=== PATIENT | male | born 1975 | race Caucasian/White ===

== ENCOUNTER 2018-11-21 08:56 | Emergency (ER) | payer MEDICAID ==
[2018-11-21] MEDS ORDERED: Albuterol/Ipratropium 3.0-0.5 MG/3 ML Neb Soln NEB ONE (09:07)
[2018-11-21] MEDS ORDERED: Sodium Chloride 0.9% 10 ML Syringe FLUSH PRN (09:08)
[2018-11-21] MEDS ORDERED: Aspirin 81 MG Tab.Chew PO ONE (09:08)
[2018-11-21] MEDS ORDERED: Sodium Chloride 0.9% 2.5 ML Syringe FLUSH PRN (09:08)
[2018-11-21] MEDS ORDERED: Sodium Chloride 0.9% 1,000 ML IV ONE (09:11)
--- NOTE | 2018-11-21 09:17 | EDM.PDOC ---
ED HPI GENERAL MEDICAL PROBLEM - General Chief Complaint: Respiratory Problem Stated Complaint: TROUBLE BREATHING Time Seen by Provider: 11/21/18 09:11 - History of Present Illness INITIAL COMMENTS - FREE TEXT/NARRATIVE: HISTORY AND PHYSICAL: History of present illness: Patient a 43-year-old male presents with a concern of right chest and upper back pain acute onset this morning he states he has history of COPD he denies trauma denies nausea vomiting palpitations fever chills or other concern Review of systems: As per history of present illness and below otherwise all systems reviewed and negative. Past medical history: As per history of present illness and as reviewed below otherwise noncontributory. Surgical history: As per history of present illness and as reviewed below otherwise noncontributory. Social history: No reported history of drug or alcohol abuse. Family history: As per history of present illness and as reviewed below otherwise noncontributory. Physical exam: HEENT: Atraumatic, normocephalic, pupils reactive, negative for conjunctival pallor or scleral icterus, mucous membranes moist, throat clear, neck supple, nontender, trachea midline. Lungs: Clear to auscultation, breath sounds equal bilaterally, chest nontender. Heart: S1S2, regular, negative for clicks, rubs, or JVD. Abdomen: Soft, nondistended, nontender. Negative for masses or hepatosplenomegaly. Negative for costovertebral tenderness. Pelvis: Stable nontender. Genitourinary: Deferred. Rectal: Deferred. Extremities: Atraumatic, negative for cords or calf pain. Neurovascular unremarkable. Neuro: Awake, alert, oriented. Cranial nerves II through XII unremarkable. Cerebellum unremarkable. Motor and sensory unremarkable throughout. Exam nonfocal. Diagnostics: CBC CMP troponin PT/INR chest x-ray EKG CTA chest Therapeutics: IV O2 monitor Impression: #1 atypical chest pain #2 dyspnea Definitive disposition and diagnosis as appropriate pending reevaluation and review of above. Right Back Pain Score (Numeric/FACES): 9 - Related Data Allergies Allergy/AdvReac Type Severity Reaction Status Date / Time tomato Allergy Airway Verified 11/21/18 09:02 Tightness Home Meds: Home Meds . [No Known Home Meds] 11/21/18 [History] Past Medical History Respiratory History: Reports: Asthma, COPD - Past Surgical History HEENT Surgical History: Reports: Adenoidectomy, Tonsillectomy GI Surgical History: Reports: Cholecystectomy Social & Family History - Family History Family Medical History: Noncontributory - Tobacco Use Smoking Status *Q: Current Every Day Smoker Years of Tobacco use: 20 Packs/Tins Daily: 0.1 - Recreational Drug Use Recreational Drug Use: No ED ROS GENERAL - Review of Systems Review Of Systems: ROS reveals no pertinent complaints other than HPI. ED EXAM, GENERAL - Physical Exam Exam: See Below (See dictation) Course - Vital Signs Text/Narrative:: Patient's emergency room course the unremarkable CT chest was negative for any obvious pulmonary emboli was an incidental nodule noted in right lower lung and discussed with patient the need for follow-up with his private medical doctor understands and agrees cardiac enzymes were negative patient be discharged with diagnoses of #1 atypical chest pain #2 history of COPD he'll be given Ultram to take as prescribed and follow-up with his private medical doctor as discussed for follow-up was pulmonary nodule in reevaluation he's return as needed as discussed Last Recorded V/S: Last Vital Signs Temp 35.9 C 11/21/18 08:59 Pulse 77 11/21/18 11:20 Resp 20 11/21/18 11:20 BP 144/100 H 11/21/18 11:20 Pulse Ox 98 11/21/18 11:20 - Orders/Labs/Meds Orders: Active Orders 24 hr Category Date Time Status Cardiac Monitoring [RC] . DIRECTED Care 11/21/18 09:08 Active EKG 12 Lead [EKG Documentation Completion] [RC] STAT Care 11/21/18 09:07 Active Oxygen Therapy [RC] ASDIRECTED Care 11/21/18 09:08 Active Pulse Oximetry [RC] ASDIRECTED Care 11/21/18 09:08 Active RT Aerosol Therapy [RC] ASDIRECTED Care 11/21/18 09:07 Active Sodium Chloride 0.9% [Saline Flush] Med 11/21/18 09:08 Active 10 ml FLUSH ASDIRECTED PRN Sodium Chloride 0.9% [Saline Flush] Med 11/21/18 09:08 Active 2.5 ml FLUSH ASDIRECTED PRN Saline Lock Insert [OM.PC] Stat Oth 11/21/18 09:08 Ordered Medication Orders Sodium Chloride (Saline Flush) 10 ml FLUSH ASDIRECTED PRN PRN Reason: Keep Vein Open Sodium Chloride (Saline Flush) 2.5 ml FLUSH ASDIRECTED PRN PRN Reason: Keep Vein Open Labs: Laboratory Tests 11/21/18 11/21/18 11/21/18 Range/Units 09:10 09:10 09:10 WBC 11.51 H (4.0-11.0) K/uL RBC 4.83 (4.50-5.90) M/uL Hgb 14.7 (13.0-17.0) g/dL Hct 42.8 (38.0-50.0) % MCV 88.6 (80.0-98.0) fL MCH 30.4 (27.0-32.0) pg MCHC 34.3 (31.0-37.0) g/dL RDW Std Deviation 44.1 (28.0-62.0) fl RDW Coeff of Waylon 14 (11.0-15.0) % Plt Count 312 (150-400) K/uL MPV 10.50 (7.40-12.00) fL Neut % (Auto) 62.3 (48.0-80.0) % Lymph % (Auto) 26.2 (16.0-40.0) % [place] % (Auto) 8.8 (0.0-15.0) % Eos % (Auto) 2.3 (0.0-7.0) % Baso % (Auto) 0.4 (0.0-1.5) % Neut # (Auto) 7.2 H (1.4-5.7) K/uL Lymph # (Auto) 3.0 H (0.6-2.4) K/uL [place] # (Auto) 1.0 H (0.0-0.8) K/uL Eos # (Auto) 0.3 (0.0-0.7) K/uL Baso # (Auto) 0.1 (0.0-0.1) K/uL Nucleated RBC % 0.0 /100WBC Nucleated RBCs # 0 K/uL INR 0.92 ABG pH (7.35-7.45) ABG pCO2 (35-45) mmHG ABG pO2 (75-100) mmHG ABG HCO3 (22-26) mEq/L ABG Total CO2 ABG Base Excess (-2.0-2.0) Sodium 141 (136-148) mmol/L Potassium 3.7 (3.5-5.1) mmol/L Chloride 106 (98-107) mmol/L Carbon Dioxide 24.3 (21.0-32.0) mmol/L BUN 14 (7.0-18.0) mg/dL Creatinine 1.1 (0.8-1.3) mg/dL Est Cr Clr Drug Dosing 86.59 mL/min Estimated GFR (MDRD) > 60.0 ml/min Glucose 128 H (74-106) mg/dL Calcium 9.7 (8.5-10.1) mg/dL Total Bilirubin 0.4 (0.2-1.0) mg/dL AST 14 L (15-37) IU/L ALT 30 (14-63) IU/L Alkaline Phosphatase 54 (46-116) U/L Troponin I < 0.050 (0.000-0.056) ng/mL Total Protein 7.5 (6.4-8.2) g/dL Albumin 3.8 (3.4-5.0) g/dL Globulin 3.7 (2.6-4.0) g/dL Albumin/Globulin Ratio 1.0 (0.9-1.6) 11/21/18 Range/Units 09:30 WBC (4.0-11.0) K/uL RBC (4.50-5.90) M/uL Hgb (13.0-17.0) g/dL Hct (38.0-50.0) % MCV (80.0-98.0) fL MCH (27.0-32.0) pg MCHC (31.0-37.0) g/dL RDW Std Deviation (28.0-62.0) fl RDW Coeff of Waylon (11.0-15.0) % Plt Count (150-400) K/uL MPV (7.40-12.00) fL Neut % (Auto) (48.0-80.0) % Lymph % (Auto) (16.0-40.0) % [place] % (Auto) (0.0-15.0) % Eos % (Auto) (0.0-7.0) % Baso % (Auto) (0.0-1.5) % Neut # (Auto) (1.4-5.7) K/uL Lymph # (Auto) (0.6-2.4) K/uL [place] # (Auto) (0.0-0.8) K/uL Eos # (Auto) (0.0-0.7) K/uL Baso # (Auto) (0.0-0.1) K/uL Nucleated RBC % /100WBC Nucleated RBCs # K/uL INR ABG pH 7.442 (7.35-7.45) ABG pCO2 37 (35-45) mmHG ABG pO2 77 (75-100) mmHG ABG HCO3 25 (22-26) mEq/L ABG Total CO2 21.8 ABG Base Excess 1.0 (-2.0-2.0) Sodium (136-148) mmol/L Potassium (3.5-5.1) mmol/L Chloride (98-107) mmol/L Carbon Dioxide (21.0-32.0) mmol/L BUN (7.0-18.0) mg/dL Creatinine (0.8-1.3) mg/dL Est Cr Clr Drug Dosing mL/min Estimated GFR (MDRD) ml/min Glucose (74-106) mg/dL Calcium (8.5-10.1) mg/dL Total Bilirubin (0.2-1.0) mg/dL AST (15-37) IU/L ALT (14-63) IU/L Alkaline Phosphatase (46-116) U/L Troponin I (0.000-0.056) ng/mL Total Protein (6.4-8.2) g/dL Albumin (3.4-5.0) g/dL Globulin (2.6-4.0) g/dL Albumin/Globulin Ratio (0.9-1.6) Meds: Medications Generic Name Dose Route Start Last Admin Trade Name Freq PRN Reason Stop Dose Admin Sodium Chloride 10 ml 11/21/18 09:08 Saline Flush FLUSH ASDIRECTED PRN Keep Vein Open Sodium Chloride 2.5 ml 11/21/18 09:08 Saline Flush FLUSH ASDIRECTED PRN Keep Vein Open Discontinued Medications Generic Name Dose Route Start Last Admin Trade Name Freq PRN Reason Stop Dose Admin Albuterol/Ipratropium 3 ml 11/21/18 09:07 11/21/18 09:16 Duoneb 3.0-0.5 Mg/3 Ml NEB 11/21/18 09:08 3 ml ONETIME ONE Administration Aspirin 324 mg 11/21/18 09:08 11/21/18 09:25 Aspirin PO 11/21/18 09:09 324 mg ONETIME ONE Administration Sodium Chloride 1,000 mls @ 999 mls/hr 11/21/18 09:11 11/21/18 09:25 Normal Saline IV 11/21/18 10:11 999 mls/hr STAT ONE Administration Departure - Departure Time of Disposition: 11:39 Disposition: Home, Self-Care 01 Condition: Good Clinical Impression: Atypical chest pain, COPD (chronic obstructive pulmonary disease) - Discharge Information Referrals: PCP,None [Primary Care Provider] - Forms: ED Department Discharge Additional Instructions: The following information is given to patients seen in the emergency department who are being discharged to home. This information is to outline your options for follow-up care. We provide all patients seen in our emergency department with a follow-up referral. The need for follow-up, as well as the timing and circumstances, are variable depending upon the specifics of your emergency department visit. If you don't have a primary care physician on staff, we will provide you with a referral. We always advise you to contact your personal physician following an emergency department visit to inform them of the circumstance of the visit and for follow-up with them and/or the need for any referrals to a consulting specialist. The emergency department will also refer you to a specialist when appropriate. This referral assures that you have the opportunity for followup care with a specialist. All of these measure are taken in an effort to provide you with optimal care, which includes your followup. Under all circumstances we always encourage you to contact your private physician who remains a resource for coordinating your care. When calling for followup care, please make the office aware that this follow-up is from your recent emergency room visit. If for any reason you are refused follow-up, please contact the [facility] emergency department at and asked to speak to the emergency department charge nurse. [facility] [address] [place] [address] [id number] [facility] as prescribed follow-up private medical doctor and/or clinic as discussed return as needed as discussed - My Orders Last 24 Hours: My Active Orders 11/21/18 09:07 EKG 12 Lead [EKG Documentation Completion] [RC] STAT RT Aerosol Therapy [RC] ASDIRECTED 11/21/18 09:08 Cardiac Monitoring [RC] . DIRECTED Oxygen Therapy [RC] ASDIRECTED Pulse Oximetry [RC] ASDIRECTED Sodium Chloride 0.9% [Saline Flush] 10 ml FLUSH ASDIRECTED PRN Sodium Chloride 0.9% [Saline Flush] 2.5 ml FLUSH ASDIRECTED PRN Saline Lock Insert [OM.PC] Stat - Assessment/Plan Last 24 Hours: My Active Orders 11/21/18 09:07 EKG 12 Lead [EKG Documentation Completion] [RC] STAT RT Aerosol Therapy [RC] ASDIRECTED 11/21/18 09:08 Cardiac Monitoring [RC] . DIRECTED Oxygen Therapy [RC] ASDIRECTED Pulse Oximetry [RC] ASDIRECTED Sodium Chloride 0.9% [Saline Flush] 10 ml FLUSH ASDIRECTED PRN Sodium Chloride 0.9% [Saline Flush] 2.5 ml FLUSH ASDIRECTED PRN Saline Lock Insert [OM.PC] Stat
[2018-11-21 10:04] LABS: CHLORIDE,CL 106 mmol/L (98-107); SODIUM,NA 141 mmol/L (136-148)
--- NOTE | 2018-11-21 10:51 | CR ---
EXAMINATION: Portable chest radiograph. HISTORY: Shortness of breath. FINDINGS: The trachea is midline. The cardiomediastinal silhouette is within normal limits. No pulmonary infiltrates, effusions or pneumothorax. Interstitial prominence and atelectasis. Osseous structures appear unremarkable. IMPRESSION: No acute cardiopulmonary process.
--- NOTE | 2018-11-21 11:29 | CT ---
EXAMINATION: CTA chest HISTORY: Pain COMPARISON: Radiograph from the same day TECHNIQUE: Axial CT imaging obtained through the chest following the administration of 50 mL of Isovue-370. This was repeated with 40 mL however again there was suboptimal bolus timing. Coronal and sagittal reconstructions obtained. FINDINGS: The lungs are clear without focal consolidation. No pleural effusion or pneumothorax. Mild dependent atelectasis bilaterally. There is a small amount of soft tissue within the anterior mediastinum, likely residual thymic tissue. The heart is normal in size without a pericardial effusion. The thoracic aorta is normal in caliber. The main pulmonary arteries are patent, and the distal pulmonary arteries are not adequately opacified for evaluation. There is a 3 to 4 mm nodule within the right lower lobe, image 42, series 502. No mediastinal, hilar, or axillary lymphadenopathy. Central airways are clear. Visualized images of the upper abdomen appear normal. No suspicious osseous abnormalities. IMPRESSION: 1. Suboptimal bolus timing on multiple images, however no main or central pulmonary embolism identified. 2. Otherwise no acute cardiopulmonary finding. 3. Small 3 to 4 mm nodule within the right lower lobe. If the patient has known risk factors consider follow-up imaging in 12 months.
[2018-11-21] MEDS ORDERED: Iopamidol 755 MG/ML 500 ML Multipack Bottle IVPUSH ONE (15:16)
== END 2018-11-21 12:36 | disposition home or self-care (01) ==
LOC: MW.ED 08:56
DX: R07.89 Other chest pain (principal); J44.9 Chronic obstructive pulmonary disease, unspecified; F17.210 Nicotine dependence, cigarettes, uncomplicated; Z91.018 Allergy to other foods
CPT/HCPCS: 36415; 36600; 71045; 71275; 80053; 82803; 84484; 85025; 85610; 93005; 94640; 96360; 99285; A9270; J7040; Q9967; J7620-GY

== ENCOUNTER 2019-01-12 03:39 | Observation (INO) | payer MEDICAID ==
[2019-01-12] MEDS ORDERED: Albuterol/Ipratropium 3.0-0.5 MG/3 ML Neb Soln NEB ONE (03:51)
[2019-01-12] MEDS ORDERED: Sodium Chloride 0.9% 10 ML Syringe FLUSH PRN (04:08)
[2019-01-12] MEDS ORDERED: Sodium Chloride 0.9% 2.5 ML Syringe FLUSH PRN (04:08)
[2019-01-12] MEDS ORDERED: Sodium Chloride 0.9% 1,000 ML IV ONE (04:08)
[2019-01-12] MEDS ORDERED: methylPREDNISolone Sodium Succinate 125 MG/2 ML SDV IVPUSH ONE (04:08)
[2019-01-12] MEDS ORDERED: methylPREDNISolone Sodium Succinate 125 MG/2 ML SDV ONE (04:09)
--- NOTE | 2019-01-12 04:09 | EDM.PDOC ---
ED HPI GENERAL MEDICAL PROBLEM - General Chief Complaint: Respiratory Problem Stated Complaint: SHORTNESS OF BREATH Time Seen by Provider: 01/12/19 04:00 - History of Present Illness INITIAL COMMENTS - FREE TEXT/NARRATIVE: HISTORY AND PHYSICAL: History of present illness: The patient is a 43-year-old male who was seen here in mid November for right- sided chest pain and shortness of breath with a history of COPD and was worked up and had a negative CTA of his chest and negative labs. He has since followed up in our clinic and has been working with respiratory therapy for his COPD but he still is smoking a quarter of a pack of cigarettes a day and is a long- standing smoker for the last 20 years. He has his sister's nebulizer machine that he has been using as well as his inhalers and says he is compliant with those. This morning he got up to go to work and he felt extreme pressure in his chest and felt like he could not breathe and tried to give himself a nebulizer treatment but it did not seem to improve so he came here for evaluation. The symptoms are very similar to his prior symptoms and they are not new or different. He is not having specific left-sided chest pain and he has no cardiac history that he is aware of. He has no abdominal complaints vomiting or diarrhea and no leg pain or swelling. The patient says he is trying to reduce his tobacco use but it is been difficult and challenging. He says that he feels like he is taking very short shallow breaths because he cannot take a deep breath. Review of systems: As per history of present illness and below otherwise all systems reviewed and negative. Past medical history: As per history of present illness and as reviewed below otherwise noncontributory. Surgical history: As per history of present illness and as reviewed below otherwise noncontributory. Social history: No reported history of drug or alcohol abuse. Family history: As per history of present illness and as reviewed below otherwise noncontributory. Physical exam: General: Well-developed well-nourished mildly overweight man who is nontoxic and is taking short shallow breaths on my evaluation. He seems somewhat anxious signs are noted by me HEENT: Atraumatic, normocephalic, pupils reactive, negative for conjunctival pallor or scleral icterus, mucous membranes moist, throat clear, neck supple, nontender, trachea midline. Lungs: Diminished breath sounds throughout all lung ro but more in the bases with scattered wheezing and rhonchi, there is some abdominal work of breathing but no intercostal muscle use breath sounds equal bilaterally, chest nontender. Heart: S1S2, regular 8 and rhythm no overt murmurs Abdomen: Soft, nondistended, nontender. Negative for masses or hepatosplenomegaly. NABS Pelvis: Stable nontender. Genitourinary: Deferred. Rectal: Deferred. Extremities: Atraumatic, negative for cords or calf pain. Neurovascular unremarkable. No pedal edema or leg asymmetry Neuro: Awake, alert, oriented. Cranial nerves II through XII unremarkable. Cerebellum unremarkable. Motor and sensory unremarkable throughout. Exam nonfocal. Diagnostics: EKG CBC CMP influenza chest x-ray Therapeutics: IV O2 monitor IV fluids duo neb Solu-Medrol Seeing went in to give medications and the patient is continuing to do that short shallow breathing but he was noted to desaturate to 90%. Oxygen was turned up a little bit and he was told to take slower breaths and he is doing much better and sats came up. I will consult Dr. Raygoza for admission for COPD exacerbation 0505: Case was discussed with Dr. Raygoza who accepts the patient for admission. We will put him in as a 23 hour for COPD exacerbation Impression: COPD exacerbation Definitive disposition and diagnosis as appropriate pending reevaluation and review of above. Chest Pain Score (Numeric/FACES): 4 - Related Data Allergies Allergy/AdvReac Type Severity Reaction Status Date / Time tomato Allergy Airway Verified 01/12/19 03:44 Tightness Home Meds: Home Meds Albuterol [Proventil Neb Soln] 1.25 mg NEB Q2H 01/12/19 [History] Past Medical History Cardiovascular History: Reports: None Respiratory History: Reports: Asthma, COPD Gastrointestinal History: Reports: None Genitourinary History: Reports: None Musculoskeletal History: Reports: None Neurological History: Reports: None Psychiatric History: Reports: None Endocrine/Metabolic History: Reports: None Hematologic History: Reports: None Immunologic History: Reports: None Oncologic (Cancer) History: Reports: None Dermatologic History: Reports: None - Infectious Disease History Infectious Disease History: Reports: Chicken Pox - Past Surgical History Head Surgeries/Procedures: Reports: None HEENT Surgical History: Reports: Adenoidectomy, Tonsillectomy GI Surgical History: Reports: Cholecystectomy Social & Family History - Family History Family Medical History: Noncontributory - Tobacco Use Smoking Status *Q: Current Every Day Smoker Years of Tobacco use: 20 Packs/Tins Daily: 0.2 - Caffeine Use Caffeine Use: Reports: Coffee - Recreational Drug Use Recreational Drug Use: No ED ROS GENERAL - Review of Systems Review Of Systems: ROS reveals no pertinent complaints other than HPI. ED EXAM, GENERAL - Physical Exam Exam: See Below (See dictation) Course - Vital Signs Last Recorded V/S: Last Vital Signs Temp 36.6 C 01/12/19 03:45 Pulse 74 01/12/19 03:45 Resp 40 H 01/12/19 03:45 BP 142/94 H 01/12/19 03:45 Pulse Ox 96 01/12/19 03:45 - Orders/Labs/Meds Orders: Active Orders 24 hr Category Date Time Status Cardiac Monitoring [RC] . DIRECTED Care 01/12/19 04:07 Active EKG Documentation Completion [RC] STAT Care 01/12/19 04:07 Active Oxygen Therapy, ED [RC] ASDIRECTED Care 01/12/19 04:07 Active Pulse Oximetry [RC] ASDIRECTED Care 01/12/19 04:07 Active RT Aerosol Therapy [RC] ASDIRECTED Care 01/12/19 03:53 Active Sodium Chloride 0.9% [Saline Flush] Med 01/12/19 04:08 Active 10 ml FLUSH ASDIRECTED PRN Sodium Chloride 0.9% [Saline Flush] Med 01/12/19 04:08 Active 2.5 ml FLUSH ASDIRECTED PRN Saline Lock Insert [OM.PC] Stat Oth 01/12/19 04:07 Ordered Medication Orders Sodium Chloride (Saline Flush) 10 ml FLUSH ASDIRECTED PRN PRN Reason: Keep Vein Open Sodium Chloride (Saline Flush) 2.5 ml FLUSH ASDIRECTED PRN PRN Reason: Keep Vein Open Labs: Laboratory Tests 01/12/19 01/12/19 Range/Units 03:45 03:45 WBC 11.06 H (4.0-11.0) K/uL RBC 5.13 (4.50-5.90) M/uL Hgb 15.9 (13.0-17.0) g/dL Hct 45.9 (38.0-50.0) % MCV 89.5 (80.0-98.0) fL MCH 31.0 (27.0-32.0) pg MCHC 34.6 (31.0-37.0) g/dL RDW Std Deviation 45.9 (28.0-62.0) fl RDW Coeff of [place]lon 14 (11.0-15.0) % Plt Count 342 (150-400) K/uL MPV 10.40 (7.40-12.00) fL Neut % (Auto) 51.6 (48.0-80.0) % Lymph % (Auto) 36.1 (16.0-40.0) % [place] % (Auto) 9.0 (0.0-15.0) % Eos % (Auto) 2.9 (0.0-7.0) % Baso % (Auto) 0.4 (0.0-1.5) % Neut # (Auto) 5.7 (1.4-5.7) K/uL Lymph # (Auto) 4.0 H (0.6-2.4) K/uL [place] # (Auto) 1.0 H (0.0-0.8) K/uL Eos # (Auto) 0.3 (0.0-0.7) K/uL Baso # (Auto) 0.0 (0.0-0.1) K/uL Nucleated RBC % 0.0 /100WBC Nucleated RBCs # 0 K/uL Sodium 140 (136-148) mmol/L Potassium 3.7 (3.5-5.1) mmol/L Chloride 105 (98-107) mmol/L Carbon Dioxide 24.8 (21.0-32.0) mmol/L BUN 11 (7.0-18.0) mg/dL Creatinine 1.0 (0.8-1.3) mg/dL Est Cr Clr Drug Dosing 95.25 mL/min Estimated GFR (MDRD) > 60.0 ml/min Glucose 107 H (74-106) mg/dL Calcium 9.0 (8.5-10.1) mg/dL Total Bilirubin 0.2 (0.2-1.0) mg/dL AST 16 (15-37) IU/L ALT 31 (14-63) IU/L Alkaline Phosphatase 70 (46-116) U/L Total Protein 7.6 (6.4-8.2) g/dL Albumin 3.9 (3.4-5.0) g/dL Globulin 3.7 (2.6-4.0) g/dL Albumin/Globulin Ratio 1.1 (0.9-1.6) Meds: Medications Generic Name Dose Route Start Last Admin Trade Name Freq PRN Reason Stop Dose Admin Sodium Chloride 10 ml 01/12/19 04:08 Saline Flush FLUSH ASDIRECTED PRN Keep Vein Open Sodium Chloride 2.5 ml 01/12/19 04:08 Saline Flush FLUSH ASDIRECTED PRN Keep Vein Open Discontinued Medications Generic Name Dose Route Start Last Admin Trade Name Freq PRN Reason Stop Dose Admin Albuterol/Ipratropium 3 ml 01/12/19 03:51 01/12/19 03:56 Duoneb 3.0-0.5 Mg/3 Ml NEB 01/12/19 03:52 3 ml ONETIME ONE Administration Sodium Chloride 1,000 mls @ 999 mls/hr 01/12/19 04:08 01/12/19 04:18 Normal Saline IV 01/12/19 05:08 999 mls/hr STAT ONE Administration Methylprednisolone Sodium Succinate 125 mg 01/12/19 04:08 01/12/19 04:13 Solu-Medrol IVPUSH 01/12/19 04:09 125 mg ONETIME ONE Administration Methylprednisolone Sodium Succinate Confirm 01/12/19 04:09 01/12/19 04:13 Solu-Medrol Administered 01/12/19 04:10 Not Given Dose 125 mg .ROUTE .STK-MED ONE Departure - Departure Time of Disposition: 05:09 Disposition: Refer to Observation Condition: Good Clinical Impression: COPD with exacerbation - Discharge Information Referrals: PCP,None [Primary Care Provider] - Forms: ED Department Discharge - My Orders Last 24 Hours: My Active Orders 01/12/19 03:53 RT Aerosol Therapy [RC] ASDIRECTED 01/12/19 04:07 Cardiac Monitoring [RC] . DIRECTED EKG Documentation Completion [RC] STAT Oxygen Therapy, ED [RC] ASDIRECTED Pulse Oximetry [RC] ASDIRECTED Saline Lock Insert [OM.PC] Stat 01/12/19 04:08 Sodium Chloride 0.9% [Saline Flush] 10 ml FLUSH ASDIRECTED PRN Sodium Chloride 0.9% [Saline Flush] 2.5 ml FLUSH ASDIRECTED PRN - Assessment/Plan Last 24 Hours: My Active Orders 01/12/19 03:53 RT Aerosol Therapy [RC] ASDIRECTED 01/12/19 04:07 Cardiac Monitoring [RC] . DIRECTED EKG Documentation Completion [RC] STAT Oxygen Therapy, ED [RC] ASDIRECTED Pulse Oximetry [RC] ASDIRECTED Saline Lock Insert [OM.PC] Stat 01/12/19 04:08 Sodium Chloride 0.9% [Saline Flush] 10 ml FLUSH ASDIRECTED PRN Sodium Chloride 0.9% [Saline Flush] 2.5 ml FLUSH ASDIRECTED PRN
[2019-01-12 04:23] LABS: CHLORIDE,CL 105 mmol/L (98-107); SODIUM,NA 140 mmol/L (136-148)
--- NOTE | 2019-01-12 04:42 | CR ---
INDICATION: prior sent. shortness of breath. 2 images TECHNIQUE: Chest 1 view. COMPARISON: 11/21/18 FINDINGS: Cardiovascular and mediastinum: Heart size and vasculature are normal in caliber and appearance. Mediastinum is within normal limits. Lungs and pleural space: Lungs are clear. No sign of infiltrate or mass. No sign of pleural effusion. No pneumothorax. Bones and soft tissues: No significant findings. IMPRESSION: Unremarkable chest. Dictated by: Curt Shell MD @ 01/12/2019 04:41:12 (Electronically Signed)
[2019-01-12] MEDS ORDERED: Docusate Sodium 100 MG Cap PO PRN (08:14)
[2019-01-12] MEDS ORDERED: Albuterol 0.083% 2.5 MG/3 ML Neb Soln NEB PRN (08:14)
[2019-01-12] MEDS ORDERED: Acetaminophen 325 MG Tab PO PRN (08:14)
[2019-01-12] MEDS ORDERED: Ondansetron 4 MG/2 ML SDV IVPUSH PRN (08:14)
--- NOTE | 2019-01-12 08:55 | PCM.HP ---
H&P History of Present Illness - General Date of Service: 01/12/19 Admit Problem/Dx: Admission Diagnosis/Problem Admission Diagnosis/Problem COPD, Mild chronic obstructive pulmonary disease Source of Information: Patient History Limitations: Reports: No Limitations - History of Present Illness Initial Comments - Free Text/Narative: This 43 year old male with PMH of suspected COPD vs reactive airway disease presented to the ED with concerns of shortness of breath and all over chest tightness. He reports he awake unable to breath and wheezing significantly. He reports attempting his rescue inhaler as well as his sister nebulizers but this did not help and he came to the ED to be evaluated. He reports he otherwise was feeling well prior to this night filler. He denies fevers chills or productive cough. No overt chest pain, but reports tightness due to the inability to take a deep breath. He denies abdominal pain or constipation of diarrhea. He reports he just had a PFT done on Saturday, has not heard back on results. He uses on albuterol inhaler PRN at home, was prescribed Pulmicort, but reports that gives him a headache and stopped using it. He continues to smoke 3-4 cigarettes a day and is in the process of quitting, he is exposed to second hand smoke as well. He denies orthopnea or peripheral edema. In the ED slight leukocytosis, 11,060. BMP WNL. CXR negative. BP upon arrival elevated, 160s SBP returned to normal when breathing improved. He was given Solumedrol and DuoNeb in the ED, which he reports helped some what. He will be admitted observation for suspected COPD exacerbation. Chest Pain Score (Numeric/FACES): 4 Right Thoracic Pain Score (Numeric/FACES): 3 - Related Data Allergies/Adverse Reactions: Allergies Allergy/AdvReac Type Severity Reaction Status Date / Time tomato Allergy Airway Verified 01/12/19 03:44 Tightness Home Medications: Home Meds Albuterol [Proventil Neb Soln] 1.25 mg NEB Q2H 01/12/19 [History] Past Medical History Cardiovascular History: Reports: None. Denies: CAD, High Cholesterol, Hypertension, NE Respiratory History: Reports: Asthma, COPD. Denies: Sleep Apnea Gastrointestinal History: Reports: None. Denies: GERD, GI Bleed Genitourinary History: Reports: None. Denies: Chronic Renal Insuffiency Musculoskeletal History: Reports: None Neurological History: Reports: None. Denies: CVA, TIA Psychiatric History: Reports: None Endocrine/Metabolic History: Reports: None. Denies: Diabetes, Type II Hematologic History: Reports: None Immunologic History: Reports: None Oncologic (Cancer) History: Reports: None Dermatologic History: Reports: None - Infectious Disease History Infectious Disease History: Reports: Chicken Pox - Past Surgical History Head Surgeries/Procedures: Reports: None HEENT Surgical History: Reports: Adenoidectomy, Tonsillectomy GI Surgical History: Reports: Cholecystectomy Social & Family History - Family History Family Medical History: Noncontributory - Tobacco Use Smoking Status *Q: Current Every Day Smoker Years of Tobacco use: 20 Packs/Tins Daily: 0.2 - Caffeine Use Caffeine Use: Reports: Coffee - Alcohol Use Alcohol Use History: No - Recreational Drug Use Recreational Drug Use: No - Living Situation & Occupation Living situation: Reports: Occupation: Employed H&P Review of Systems - Review of Systems: Review Of Systems: See Below General: Reports: No Symptoms. Denies: Fever, Chills, Malaise, Weakness HEENT: Denies: Headaches, Sinus Congestion, Vertigo Pulmonary: Reports: Shortness of Breath, Wheezing, Cough. Denies: Sputum Cardiovascular: Reports: No Symptoms. Denies: Chest Pain, Edema, Lightheadedness Gastrointestinal: Reports: No Symptoms. Denies: Abdominal Pain, Black Stool, Bloody Stool, Nausea, Vomiting Genitourinary: Reports: No Symptoms. Denies: Dysuria, Frequency, Burning Musculoskeletal: Reports: No Symptoms Skin: Reports: No Symptoms. Denies: Erythema Neurological: Reports: No Symptoms Hematologic/Lymphatic: Reports: No Symptoms Immunologic: Reports: No Symptoms Exam - Exam Exam: See Below - Vital Signs Vital Signs: Last Vital Signs Temp 97.1 F 01/12/19 06:25 Pulse 69 01/12/19 06:25 Resp 12 01/12/19 06:25 BP 131/89 01/12/19 06:25 Pulse Ox 97 01/12/19 06:25 Weight: 106.594 kg - Exam Quality Assessment: DVT Prophylaxis. No: Supplemental Oxygen General: Alert, Oriented, Cooperative HEENT: Conjunctiva Clear, Mucosa Moist & [place], Posterior Pharynx Clear Neck: Supple Lungs: Wheezing (RUL). No: Normal Respiratory Effort (shallow inspirations.) Cardiovascular: Regular Rate, Regular Rhythm GI/Abdominal Exam: Normal Bowel Sounds, Soft, Non-Tender Extremities: Normal Inspection, Normal Range of Motion, Non-Tender, No Pedal Edema Skin: Warm, Dry Neurological: Cranial Nerves Intact Neuro Extensive - Mental Status: Alert, Oriented x3, Normal Mood/Affect Neuro Extensive - Motor, Sensory, Reflexes: CN II-XII Intact Psychiatric: Alert, Normal Affect, Normal Mood - Patient Data Lab Results Last 24 hrs: Laboratory Results - last 24 hr 01/12/19 01/12/19 Range/Units 03:45 03:45 WBC 11.06 H (4.0-11.0) K/uL RBC 5.13 (4.50-5.90) M/uL Hgb 15.9 (13.0-17.0) g/dL Hct 45.9 (38.0-50.0) % MCV 89.5 (80.0-98.0) fL MCH 31.0 (27.0-32.0) pg MCHC 34.6 (31.0-37.0) g/dL RDW Std Deviation 45.9 (28.0-62.0) fl RDW Coeff of Waylon 14 (11.0-15.0) % Plt Count 342 (150-400) K/uL MPV 10.40 (7.40-12.00) fL Neut % (Auto) 51.6 (48.0-80.0) % Lymph % (Auto) 36.1 (16.0-40.0) % [place] % (Auto) 9.0 (0.0-15.0) % Eos % (Auto) 2.9 (0.0-7.0) % Baso % (Auto) 0.4 (0.0-1.5) % Neut # (Auto) 5.7 (1.4-5.7) K/uL Lymph # (Auto) 4.0 H (0.6-2.4) K/uL [place] # (Auto) 1.0 H (0.0-0.8) K/uL Eos # (Auto) 0.3 (0.0-0.7) K/uL Baso # (Auto) 0.0 (0.0-0.1) K/uL Nucleated RBC % 0.0 /100WBC Nucleated RBCs # 0 K/uL Sodium 140 (136-148) mmol/L Potassium 3.7 (3.5-5.1) mmol/L Chloride 105 (98-107) mmol/L Carbon Dioxide 24.8 (21.0-32.0) mmol/L BUN 11 (7.0-18.0) mg/dL Creatinine 1.0 (0.8-1.3) mg/dL Est Cr Clr Drug Dosing 95.25 mL/min Estimated GFR (MDRD) > 60.0 ml/min Glucose 107 H (74-106) mg/dL Calcium 9.0 (8.5-10.1) mg/dL Total Bilirubin 0.2 (0.2-1.0) mg/dL AST 16 (15-37) IU/L ALT 31 (14-63) IU/L Alkaline Phosphatase 70 (46-116) U/L Total Protein 7.6 (6.4-8.2) g/dL Albumin 3.9 (3.4-5.0) g/dL Globulin 3.7 (2.6-4.0) g/dL Albumin/Globulin Ratio 1.1 (0.9-1.6) Result Diagrams: 01/12/19 03:45 01/12/19 03:45 Tomas Results Last 24 hrs: Microbiology 01/12/19 04:23 Influenza Type A Antigen Screen - Final Nasopharyngeal Swab NEGATIVE INFLUENZA A VIRUS AG Influenza Type B Antigen Screen - Final NEGATIVE INFLUENZA B VIRUS AG *Q Meaningful Use (ADM) - VTE Risk Assess *Q Each Risk Factor Represents 1 Point: Age 41 - 59 years, Abnormal Pulmonary Function (COPD) Total Score 1 Point Risk Factors: 2 Each Risk Factor Represents 2 Points: None Total Score 2 Point Risk Factors: 0 Each Risk Factor Represents 3 Points: None Total Score 3 Point Risk Factors: 0 Each Risk Factor Represents 5 Points: None Total Score 5 Point Risk Factors: 0 Venous Thromboembolism Risk Factor Score *Q: 2 - Problem List (1) COPD with exacerbation SNOMED Code(s): 362021210 ICD Code: J44.1 - CHRONIC OBSTRUCTIVE PULMONARY DISEASE W (ACUTE) EXACERBATION Status: Acute Current Visit: Yes (2) Smoker SNOMED Code(s): 85470708 ICD Code: F17.200 - NICOTINE DEPENDENCE, UNSPECIFIED, UNCOMPLICATED Status : Chronic Current Visit: Yes Problem List Initiated/Reviewed/Updated: Yes Orders Last 24hrs: Active Orders 24 hr Category Date Time Status Patient Status [ADT] Stat ADT 01/12/19 05:10 Active Ambulate [RC] ASDIRECTED Care 01/12/19 08:14 Active Cardiac Monitoring [RC] . DIRECTED Care 01/12/19 04:07 Active Intake and Output [RC] QSHIFT Care 01/12/19 08:14 Active Oxygen Therapy [RC] PRN Care 01/12/19 08:14 Active RT Aerosol Therapy [RC] ASDIRECTED Care 01/12/19 03:53 Active RT Aerosol Therapy [RC] ASDIRECTED Care 01/12/19 08:15 Active RT Post Treatment Assessment [RC] Click to Edit Care 01/12/19 08:16 Active RT Pre-Treatment Assessment [RC] Click to Edit Care 01/12/19 08:16 Active VTE/DVT Education [RC] PER UNIT ROUTINE Care 01/12/19 08:14 Active Vital Signs [RC] Q4H Care 01/12/19 08:14 Active Respiratory Care Assess and Treatment [CONS] Routine Cons 01/12/19 08:14 Active Regular Diet [DIET] Diet 01/12/19 Breakfast Active BASIC METABOLIC PANEL,BMP [CHEM] AM Lab 01/13/19 05:11 Ordered BASIC METABOLIC PANEL,BMP [CHEM] AM Lab 01/14/19 05:11 Ordered CBC WITH AUTO DIFF [HEME] AM Lab 01/13/19 05:11 Ordered CBC WITH AUTO DIFF [HEME] AM Lab 01/14/19 05:11 Ordered Acetaminophen [Tylenol] Med 01/12/19 08:14 Active 650 mg PO Q4H PRN Albuterol [Proventil Neb Soln] Med 01/12/19 08:14 Active 2.5 mg NEB Q2H PRN Albuterol/Ipratropium [DuoNeb 3.0-0.5 MG/3 ML] Med 01/12/19 10:00 Active 3 ml NEB Q4HRRT Docusate Sodium [Colace] Med 01/12/19 08:14 Active 100 mg PO BID PRN Enoxaparin [Lovenox] Med 01/12/19 08:15 Active 40 mg SUBCUT Q24H Fluticasone/Salmeterol [Advair Diskus 250-50] Med 01/12/19 09:00 Active 1 puff INH BID Ondansetron [Zofran] Med 01/12/19 08:14 Active 4 mg IVPUSH Q4H PRN Sodium Chloride 0.9% [Saline Flush] Med 01/12/19 04:08 Active 10 ml FLUSH ASDIRECTED PRN Sodium Chloride 0.9% [Saline Flush] Med 01/12/19 04:08 Active 2.5 ml FLUSH ASDIRECTED PRN methylPREDNISolone Sod Succ [Solu-MEDROL] Med 01/12/19 10:00 Active 125 mg IVPUSH Q6H Saline Lock Insert [OM.PC] Stat Oth 01/12/19 04:07 Ordered Resuscitation Status Routine Resus Stat 01/12/19 08:14 Ordered Medication Orders Acetaminophen (Tylenol) 650 mg PO Q4H PRN PRN Reason: Pain (mild 1-3) Albuterol (Proventil Neb Soln) 2.5 mg NEB Q2H PRN PRN Reason: Shortness Of Breath/wheezing Albuterol/Ipratropium (Duoneb 3.0-0.5 Mg/3 Ml) 3 ml NEB Q4HRRT [facility] Docusate Sodium (Colace) 100 mg PO BID PRN PRN Reason: Constipation Enoxaparin Sodium (Lovenox) 40 mg SUBCUT Q24H [facility] Methylprednisolone Sodium Succinate (Solu-Medrol) 125 mg IVPUSH Q6H [facility] Ondansetron HCl (Zofran) 4 mg IVPUSH Q4H PRN PRN Reason: Nausea Fluticasone/Salmeterol (Advair Diskus 250-50) 1 puff INH BID KEMI Sodium Chloride (Saline Flush) 10 ml FLUSH ASDIRECTED PRN PRN Reason: Keep Vein Open Sodium Chloride (Saline Flush) 2.5 ml FLUSH ASDIRECTED PRN PRN Reason: Keep Vein Open Assessment/Plan Comment:: This 43 year old male admitted with COPD exacerbation 1. COPD exacerbation: PFT results pending. Will treat with Solumedrol 125 IV Q6hr, Duonebs and IS. Will start Advair and monitor how he does with this. Consult respiratory therapy for COD education. Continued to encourage smoking cessation, which he is attempting at home. Denies wanting nicotine patch currently. VTE prophylaxis: Lovenox. Dispo: 1-2 days pending improvement.
[2019-01-12] MEDS: Albuterol/Ipratropium 3.0-0.5 MG/3 ML Neb Soln NEB SCH ×4 (09:20→21:07)
[2019-01-12] MEDS: Fluticasone/Salmeterol 250-50 MCG Inhalation Powder 14/Diskus INH SCH ×2 (09:20→21:33)
[2019-01-12] MEDS: Enoxaparin 40 MG/0.4 ML Syringe SUBCUT SCH (09:29)
[2019-01-12] MEDS: methylPREDNISolone Sodium Succinate 125 MG/2 ML SDV IVPUSH SCH ×3 (09:30→21:32)
[2019-01-13] MEDS: Albuterol/Ipratropium 3.0-0.5 MG/3 ML Neb Soln NEB SCH ×2 (02:21→06:04)
[2019-01-13] MEDS: methylPREDNISolone Sodium Succinate 125 MG/2 ML SDV IVPUSH SCH (04:33)
[2019-01-13 05:56] LABS: CHLORIDE,CL 105 mmol/L (98-107); SODIUM,NA 143 mmol/L (136-148)
[2019-01-13] MEDS: Enoxaparin 40 MG/0.4 ML Syringe SUBCUT SCH (08:27)
[2019-01-13] MEDS: Fluticasone/Salmeterol 250-50 MCG Inhalation Powder 14/Diskus INH SCH (08:28)
--- NOTE | 2019-01-13 10:26 | PCM.DCSUM1 ---
Discharge Summary - Hospital Course Brief History: This 43 year old male with PMH of suspected COPD vs reactive airway disease presented to the ED with concerns of shortness of breath and all over chest tightness. He reports he awake unable to breath and wheezing significantly. He reports attempting his rescue inhaler as well as his sister nebulizers but this did not help and he came to the ED to be evaluated. 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 He denies fevers chills or productive cough. No overt chest pain, but reports tightness due to the inability to take a deep breath. He denies abdominal pain or constipation of diarrhea. He reports he just had a PFT done on Saturday, has not heard back on results. He uses on albuterol inhaler PRN at home, was prescribed Pulmicort, but reports that gives him a headache and stopped using it. He continues to smoke 3-4 cigarettes a day and is in the process of quitting , he is exposed to second hand smoke as well. He denies orthopnea or peripheral edema. In the ED slight leukocytosis, 11,060. BMP WNL. CXR negative. BP upon arrival elevated, 160s SBP returned to normal when breathing improved. He was given Solumedrol and DuoNeb in the ED, which he reports helped some what. He will be admitted observation for suspected COPD exacerbation. Diagnosis: Stroke: No - Discharge Data Discharge Date: 01/13/19 Discharge Disposition: Home, Self-Care 01 Condition: Good - Discharge Diagnosis/Problem(s) (1) COPD with exacerbation SNOMED Code(s): 648466612 ICD Code: J44.1 - CHRONIC OBSTRUCTIVE PULMONARY DISEASE W (ACUTE) EXACERBATION Status: Acute Current Visit: Yes (2) Smoker SNOMED Code(s): 06034833 ICD Code: F17.200 - NICOTINE DEPENDENCE, UNSPECIFIED, UNCOMPLICATED Status : Chronic Current Visit: Yes - Patient Summary/Data Consults: Consultations 01/12/19 08:14 Respiratory Care Assess and Treatment [CONS] Routine - Patient Instructions Diet: Usual Diet as Tolerated Activity: As Tolerated Showering/Bathing: May Shower Notify Provider of: Fever, Increased Pain, Swelling and Redness, Drainage, Nausea and/or Vomiting Other/Special Instructions: continue to quit smoking. - Discharge Plan *PRESCRIPTION DRUG MONITORING PROGRAM REVIEWED*: Not Applicable *COPY OF PRESCRIPTION DRUG MONITORING REPORT IN PATIENT BENJI: Not Applicable Prescriptions/Med Rec: Fluticasone/Salmeterol [Advair 250-50] 1 puff INH BID #1 diskus predniSONE [Prednisone] 40 mg PO DAILY #6 tablet Home Medications: Home Meds Albuterol [Proventil Neb Soln] 1.25 mg NEB Q2H 01/12/19 [History] Fluticasone/Salmeterol [Advair 250-50] 1 puff INH BID #1 diskus 01/13/19 [Rx] predniSONE [Prednisone] 40 mg PO DAILY #6 tablet 01/13/19 [Rx] Patient Handouts: Fluticasone; Salmeterol inhalation powder, Chronic Obstructive Pulmonary Disease, Nonspecific Chest Pain, [id number], Prednisone tablets Referrals: [facility] [Outside] Leora Osorio, RFID TECHNICIAN [Nurse Practitioner] - 01/27/19 2:45 pm - Discharge Summary/Plan Comment DC Time >30 min.: No Discharge Summary/Plan Comment: Discharge Diagnoses: COPD exacerbation-suspected Elmer was admitted for dyspnea and suspected COPD exacerbation. PFT pending, completed as outpatient. He was given Solumedrol and Duonebs during admission, reports breathing much better this morning. Has headache from steroids. Did start Advair 250/50 diskus and will send this home with him as well to continue to take along with albuterol rescue inhaler. Leukocytosis likely secondary reaction from steroids, no infectious process suspected. He is to follow up with Leora RFID TECHNICIAN in 1 week to insure continued improvement. He will also be sent home on short burst of prednisone 40 mg for another 3 days. He is to return to ED or clinic if concerns should arise. - General Info Date of Service: 01/13/19 Admission Dx/Problem (Free Text: Admission Diagnosis/Problem Admission Diagnosis/Problem COPD, Mild chronic obstructive pulmonary disease Subjective Update: Reports mild frontal headache this morning, unable to sleep well overnight due to headache and steroids. Reports breathing is much better and would like to go home. Functional Status: Reports: Pain Controlled, Tolerating Diet, Ambulating, Urinating - Review of Systems General: Reports: No Symptoms. Denies: Fever, Weakness HEENT: Reports: Headaches. Denies: Sore Throat Pulmonary: Reports: No Symptoms. Denies: Shortness of Breath, Cough, Sputum, Wheezing Cardiovascular: Reports: No Symptoms. Denies: Chest Pain, Dyspnea on Exertion Gastrointestinal: Reports: No Symptoms. Denies: Abdominal Pain, Nausea, Vomiting Genitourinary: Reports: No Symptoms. Denies: Dysuria, Frequency, Burning Musculoskeletal: Reports: No Symptoms. Denies: Neck Pain, Shoulder Pain Skin: Reports: No Symptoms Neurological: Reports: No Symptoms Psychiatric: Reports: No Symptoms. Denies: Confusion - Patient Data Vitals - Most Recent: Last Vital Signs Temp 96.5 F 01/13/19 08:00 Pulse 91 01/13/19 08:00 Resp 14 01/13/19 08:00 BP 127/71 01/13/19 08:00 Pulse Ox 95 01/13/19 08:00 Weight - Most Recent: 106.594 kg I&O - Last 24 hours: Intake & Output 01/12/19 01/13/19 01/13/19 22:59 06:59 14:59 Intake Total 780 600 Output Total 960 Balance -180 600 Lab Results - Last 24 hrs: Laboratory Results - last 24 hr 01/13/19 01/13/19 Range/Units 05:05 05:05 WBC 16.53 H (4.0-11.0) K/uL RBC 4.85 (4.50-5.90) M/uL Hgb 14.8 (13.0-17.0) g/dL Hct 43.4 (38.0-50.0) % MCV 89.5 (80.0-98.0) fL MCH 30.5 (27.0-32.0) pg MCHC 34.1 (31.0-37.0) g/dL RDW Std Deviation 46.3 (28.0-62.0) fl RDW Coeff of [place]lon 14 (11.0-15.0) % Plt Count 381 (150-400) K/uL MPV 10.50 (7.40-12.00) fL Neut % (Auto) 90.6 H (48.0-80.0) % Lymph % (Auto) 7.5 L (16.0-40.0) % [place] % (Auto) 1.8 (0.0-15.0) % Eos % (Auto) 0.0 (0.0-7.0) % Baso % (Auto) 0.1 (0.0-1.5) % Neut # (Auto) 15.0 H (1.4-5.7) K/uL Lymph # (Auto) 1.2 (0.6-2.4) K/uL [place] # (Auto) 0.3 (0.0-0.8) K/uL Eos # (Auto) 0.0 (0.0-0.7) K/uL Baso # (Auto) 0.0 (0.0-0.1) K/uL Nucleated RBC % 0.0 /100WBC Nucleated RBCs # 0 K/uL Sodium 143 (136-148) mmol/L Potassium 3.8 (3.5-5.1) mmol/L Chloride 105 (98-107) mmol/L Carbon Dioxide 25.5 (21.0-32.0) mmol/L BUN 11 (7.0-18.0) mg/dL Creatinine 1.1 (0.8-1.3) mg/dL Est Cr Clr Drug Dosing 86.30 mL/min Estimated GFR (MDRD) > 60.0 ml/min Glucose 153 H (74-106) mg/dL Calcium 9.7 (8.5-10.1) mg/dL Med Orders - Current: Current Medications Acetaminophen (Tylenol) 650 mg PO Q4H PRN PRN Reason: Pain (mild 1-3) Last Admin: 01/12/19 21:30 Dose: 650 mg Albuterol (Proventil Neb Soln) 2.5 mg NEB Q2H PRN PRN Reason: Shortness Of Breath/wheezing Docusate Sodium (Colace) 100 mg PO BID PRN PRN Reason: Constipation Enoxaparin Sodium (Lovenox) 40 mg SUBCUT Q24H [facility] Last Admin: 01/13/19 08:27 Dose: 40 mg Methylprednisolone Sodium Succinate (Solu-Medrol) 125 mg IVPUSH DAILY [facility] Ondansetron HCl (Zofran) 4 mg IVPUSH Q4H PRN PRN Reason: Nausea Fluticasone/Salmeterol (Advair Diskus 250-50) 1 puff INH BID [facility] Last Admin: 01/13/19 08:28 Dose: 1 inhalation Sodium Chloride (Saline Flush) 10 ml FLUSH ASDIRECTED PRN PRN Reason: Keep Vein Open Sodium Chloride (Saline Flush) 2.5 ml FLUSH ASDIRECTED PRN PRN Reason: Keep Vein Open Discontinued Medications Albuterol/Ipratropium (Duoneb 3.0-0.5 Mg/3 Ml) 3 ml NEB ONETIME ONE Stop: 01/12/19 03:52 Last Admin: 01/12/19 03:56 Dose: 3 ml Albuterol/Ipratropium (Duoneb 3.0-0.5 Mg/3 Ml) 3 ml NEB Q4HRRT [facility] Last Admin: 01/13/19 06:04 Dose: 3 ml Sodium Chloride (Normal Saline) 1,000 mls @ 999 mls/hr IV STAT ONE Stop: 01/12/19 05:08 Last Admin: 01/12/19 04:18 Dose: 999 mls/hr Methylprednisolone Sodium Succinate (Solu-Medrol) 125 mg IVPUSH ONETIME ONE Stop: 01/12/19 04:09 Last Admin: 01/12/19 04:13 Dose: 125 mg Methylprednisolone Sodium Succinate (Solu-Medrol) Confirm Administered Dose 125 mg .ROUTE .STK-MED ONE Stop: 01/12/19 04:10 Last Admin: 01/12/19 04:13 Dose: Not Given Methylprednisolone Sodium Succinate (Solu-Medrol) 125 mg IVPUSH Q6H [facility] Last Admin: 01/13/19 04:33 Dose: 125 mg - Exam Quality Assessment: Denies: Supplemental Oxygen General: Reports: Alert, Oriented, Cooperative Lungs: Reports: Clear to Auscultation, Normal Respiratory Effort Cardiovascular: Reports: Regular Rate, Regular Rhythm GI/Abdominal Exam: Normal Bowel Sounds, Soft Extremities: Normal Inspection, Normal Range of Motion, Non-Tender, No Pedal Edema Neurological: Reports: No New Focal Deficit Psy/Mental Status: Reports: Alert, Normal Affect, Normal Mood
[2019-01-13] MEDS ORDERED: Ibuprofen 400 MG Tab PO PRN (10:45)
[2019-01-14] MEDS ORDERED: methylPREDNISolone Sodium Succinate 125 MG/2 ML SDV IVPUSH SCH (09:00)
== END 2019-01-13 11:30 | disposition home or self-care (01) ==
LOC: MW.ED 03:39 → MW.MS 05:10
PROVIDERS: ADMIT Internal Medicine; ATTEND Internal Medicine
DX: J44.1 Chronic obstructive pulmonary disease with (acute) exacerbation (principal); F17.210 Nicotine dependence, cigarettes, uncomplicated; Z79.51 Long term (current) use of inhaled steroids
CPT/HCPCS: 36415; 71045; 80048; 80053; 85025; 87804; 93005; 94640; 94664; A9270; J1650; J2930; J7040; 96361; 96372; 96374; 96376; 99283; 99285-25; G0378; J7620-GY